=== PATIENT | male | born 1965 | race African-American/Black ===

== ENCOUNTER 2025-06-22 15:08 | Inpatient (IN) | payer SELFPAY ==
[~2025-06-22] VITALS: Ht 182.9 cm; Wt 77.1 kg
[2025-06-22 15:10] VITALS: O2SAT 99
[2025-06-22 16:02] LABS: BASOPHILS % 0.6 % (0.0-2.0); EOSINOPHILS % 1.3 % (0.0-5.0); HEMATOCRIT. 40.0 % (42.0-52.0); HEMOGLOBIN. 13.1 g/dL (14.0-18.0); LYMPHOCYTES % 19.4 % (20.0-50.0); MEAN PLATELET VOLUME 8.7 fl (7.4-10.4); MONOCYTES % 9.1 % (2.0-8.0); NEUTROPHILS % 69.6 % (40.0-76.0); PLATELET 171 x1000/uL (130-400); RED BLOOD CELL COUNT 4.68 mill/uL (4.7-6.1); RED CELL DISTRIBUTION WIDTH 14.2 % (11.6-14.6)
[2025-06-22 16:10] LABS: INR 1.1
[2025-06-22 16:15] LABS: CREATININE 1.2 mg/dL (0.6-1.3)
[2025-06-22] MEDS: IOHEXOL-350 100 ML BOTTLE ONE (16:15)
[2025-06-22 16:16] LABS: UREA NITROGEN BLOOD 13 mg/dL (9-23)
[2025-06-22 16:17] LABS: ASPARTATE AMINOTRANSFERASE 16 IU/L (<34); TROPONIN I HIGH SENSITIVITY 43 ng/L (3.0-53)
[2025-06-22 16:18] LABS: BILIRUBIN DIRECT 0.1 mg/dL (<=3.0); BILIRUBIN TOTAL 0.4 mg/dL (0.1-1.0); PROTEIN TOTAL 6.2 g/dL (6.0-8.3)
[2025-06-22] MEDS ORDERED: LEVETIRACETAM 5MG/ML SYR IV ONE (18:30)
[2025-06-22] MEDS: MAGNESIUM 2 G PREMIX 50 ML IV ONE (18:55)
[2025-06-22] MEDS ORDERED: DEXTROSE 50% WATER 50ML SYRINGE IV PRN (19:15)
[2025-06-22] MEDS ORDERED: ONDANSETRON HCL 4MG/2ML INJ IV PRN (19:15)
[2025-06-22] MEDS: LEVETIRACETAM 1500MG PREMIX 100 ML IV NR (19:24)
[2025-06-22] MEDS: LEVETIRACETAM 1500MG PREMIX 100 ML IV SCH (19:24)
[2025-06-22] MEDS: BLOOD SUGAR DIAGNOSTIC STRIP TEST SCH (20:00)
[2025-06-22] MEDS: LABETALOL 5MG/ML 4ML INJ IV ONE (20:12)
[2025-06-22] MEDS: LACTATED RINGERS 1,000 ML IV SCH (20:41)
[2025-06-22] MEDS: NICARDIPINE 40MG/200ML PREMIX 200 ML IV PRN (20:42)
[2025-06-22] MEDS: INSULIN LISPRO 100 UNITS/ML SUBCUT SCH (20:54)
[2025-06-22] MEDS ORDERED: LEVETIRACETAM 500MG in NACL 100ML PREMIX IV SCH (21:00)
[2025-06-22 21:09] LABS: *AMPHETAMINES SCREEN URINE NEGATIVE (NEGATIVE)
[2025-06-22 21:10] LABS: *BARBITURATES SCREEN URINE NEGATIVE (NEGATIVE); *BENZODIAZEPINES SCREEN URINE PRESUMPTIVE POSITIVE (NEGATIVE); *COCAINE SCREEN URINE NEGATIVE (NEGATIVE); CANNABINOID URINE SCREEN NEGATIVE (NEGATIVE); ECSTASY MDMA SCREEN URINE NEGATIVE (NEGATIVE); METHADONE URINE SCREEN NEGATIVE (NEGATIVE); OPIATES URINE SCREEN NEGATIVE (NEGATIVE); PHENCYCLIDINE URINE SCREEN NEGATIVE (NEGATIVE)
[2025-06-22 21:12] LABS: CLARITY URINE CLEAR (CLEAR); COLOR URINE YELLOW (YELLOW); GLUCOSE URINE 1+ (NEGATIVE); KETONES URINE NEGATIVE (NEGATIVE); LEUKOCYTE ESTERASE URINE NEGATIVE (NEGATIVE); NITRITE URINE NEGATIVE (NEGATIVE); OCCULT BLOOD URINE 2+ (NEGATIVE); PH URINE 7.0 (4.5-8.0); PROTEIN URINE 1+ (NEGATIVE); SPECIFIC GRAVITY URINE 1.032 (1.005-1.030); UROBILINOGEN URINE 1.0 E.U./dL (0.2-1.0)
[2025-06-22 21:27] LABS: SQUAMOUS EPITHELIAL CELL URINE FEW /lpf (RARE/1+)
[2025-06-22 21:28] LABS: BACTERIA URINE TRACE; WBC URINE 0-2 /hpf (0-2)
[2025-06-22] MEDS: LEVETIRACETAM 500MG PREMIX 100 ML IV SCH (22:40)
[2025-06-22] MEDS: SODIUM CHLORIDE 0.9% 3ML FLUSH IVF SCH (22:48)
[2025-06-22] MEDS ORDERED: IOHEXOL-350 100 ML BOTTLE ONE (23:10)
[2025-06-22 23:39] VITALS: BP 148/89; PULSE 91; RESP 17; TEMP 36.7; O2SAT 95
[2025-06-22 23:45] VITALS: BP 157/88; PULSE 94; RESP 16; O2SAT 96
[2025-06-22 23:59] VITALS: BP 148/74; PULSE 88; RESP 13; O2SAT 98
[2025-06-23] VITALS (56 sets, daily range): BP systolic 115–169; BP diastolic 53–109; PULSE 68–104; RESP 8–23; TEMP 35.8–36.974; O2SAT 94–98
[2025-06-23] MEDS ORDERED: NICARDIPINE 40MG/200ML PREMIX 200 ML IV PRN (02:00)
[2025-06-23] MEDS: NICARDIPINE 40MG/200ML PREMIX 200 ML IV PRN (04:44)
[2025-06-23 05:32] LABS: BASOPHILS % 0.5 % (0.0-2.0); EOSINOPHILS % 0.9 % (0.0-5.0); HEMATOCRIT. 44.7 % (42.0-52.0); HEMOGLOBIN. 14.7 g/dL (14.0-18.0); LYMPHOCYTES % 18.8 % (20.0-50.0); MEAN PLATELET VOLUME 8.7 fl (7.4-10.4); MONOCYTES % 7.1 % (2.0-8.0); NEUTROPHILS % 72.7 % (40.0-76.0); PLATELET 199 x1000/uL (130-400); RED BLOOD CELL COUNT 5.19 mill/uL (4.7-6.1); RED CELL DISTRIBUTION WIDTH 14.0 % (11.6-14.6)
[2025-06-23 05:44] LABS: CREATININE 1.2 mg/dL (0.6-1.3)
[2025-06-23 05:45] LABS: UREA NITROGEN BLOOD 15 mg/dL (9-23)
[2025-06-23 05:47] LABS: PHOSPHORUS 3.3 mg/dL (2.5-4.9)
[2025-06-23 07:20] LABS: HEPATITIS C AB NON REACTIVE (Neg) (Negative)
[2025-06-23] MEDS: PANTOPRAZOLE SODIUM 40 MG/VIAL IV SCH (08:22)
[2025-06-23] MEDS: MAGNESIUM 2 G PREMIX 50 ML IV ONE (08:23)
[2025-06-23] MEDS ORDERED: DEXTROSE 50% WATER 50ML SYRINGE IV PRN (17:45)
[2025-06-23] MEDS: BLOOD SUGAR DIAGNOSTIC STRIP TEST SCH (21:00)
[2025-06-23] MEDS: INSULIN LISPRO 100 UNITS/ML SUBCUT SCH (21:00)
[2025-06-23] MEDS: LOSARTAN 25 MG TABLET PO SCH (21:41)
[2025-06-23] MEDS: ATORVASTATIN CALCIUM 40MG TABLET PO SCH (21:42)
[2025-06-23] MEDS: AMLODIPINE 5MG TABLET PO SCH (21:42)
[2025-06-24] VITALS (7 sets, daily range): BP systolic 158–187; BP diastolic 82–97; PULSE 77–91; RESP 18–20; TEMP 36.3–36.6; O2SAT 97–98
[2025-06-24] MEDS ORDERED: GADOTERATE MEGLUMINE 5 MMOL/10 ML VIAL IV ONE (14:28)
[2025-06-24] MEDS: HYDRALAZINE 20MG/ML VIAL IV PRN (16:41)
[2025-06-24] MEDS: MAGNESIUM 2 G PREMIX 50 ML IV NR (19:03)
[2025-06-24] MEDS: HYDRALAZINE HCL 100MG TABLET PO SCH (19:40)
[2025-06-24] MEDS: LEVETIRACETAM 500MG TABLET PO SCH (22:07)
[2025-06-24] MEDS: PANTOPRAZOLE 40MG DR TABLET PO SCH (22:08)
[2025-06-24] MEDS: METOPROLOL TARTRATE 50MG TABLET PO SCH (22:17)
[2025-06-24] MEDS: LOSARTAN 50 MG TABLET PO SCH (22:18)
[2025-06-25] VITALS: BP 121/61; PULSE 87; RESP 20; TEMP 36.2; O2SAT 98
[2025-06-25 04:00] VITALS: BP 123/64; PULSE 86; RESP 20; TEMP 36.3; O2SAT 98
[2025-06-25 08:13] VITALS: BP 145/76; PULSE 80; RESP 18; TEMP 36.6; O2SAT 96
[2025-06-25] MEDS: METFORMIN HCL 500MG TABLET PO SCH (08:49)
[2025-06-25] MEDS: GLIMEPIRIDE 2MG TABLET PO SCH (08:49)
[2025-06-25] MEDS: MAGNESIUM 2 G PREMIX 50 ML IV NR (10:36)
[2025-06-25 12:14] VITALS: BP 148/78; PULSE 63; RESP 18; TEMP 36.6; O2SAT 98
[2025-06-25] MEDS: LORAZEPAM 2MG/ML UD SYRINGE IV PRN (15:44)
[2025-06-25 16:54] VITALS: BP 149/77; PULSE 70; RESP 18; TEMP 36.3; O2SAT 97
[2025-06-26 08:00] VITALS: BP 130/67; PULSE 77; RESP 18; TEMP 36.7; O2SAT 98
[2025-06-26 12:00] VITALS: BP 132/64; PULSE 77; RESP 18; TEMP 36.4; O2SAT 98
[2025-06-26 12:10] LABS: TRIGLYCERIDE 82.0 mg/dL (0-150)
[2025-06-26 12:11] LABS: LDL CHOLESTEROL 193.0 mg/dL (5-100)
[2025-06-26 16:00] VITALS: BP 128/61; PULSE 78; RESP 18; TEMP 36.8; O2SAT 98
[2025-06-26] MEDS: CLOPIDOGREL 75MG TABLET PO SCH (20:39)
[2025-06-26] MEDS: ASPIRIN 81MG EC TABLET PO SCH (20:40)
[2025-06-26] MEDS ORDERED: ATORVASTATIN CALCIUM 40MG TABLET PO SCH (21:00)
[2025-06-27 08:00] VITALS: BP 150/79; PULSE 77; RESP 18; TEMP 37; O2SAT 98
[2025-06-27 08:35] LABS: TRIGLYCERIDE 133.0 mg/dL (0-150)
[2025-06-27 08:36] LABS: LDL CHOLESTEROL 145.0 mg/dL (5-100)
[2025-06-27] MEDS: AMLODIPINE 10MG TABLET PO SCH (10:15)
[2025-06-27] MEDS: HYDROCHLOROTHIAZIDE 25MG TABLET PO SCH (10:15)
[2025-06-27 12:00] VITALS: BP 170/68; PULSE 80; RESP 18; TEMP 36.7; O2SAT 98
[2025-06-27] MEDS: HYDRALAZINE HCL 100MG TABLET PO SCH (14:11)
[2025-06-27] MEDS: MINOXIDIL 2.5MG TABLET PO SCH (14:11)
[2025-06-27] MEDS: LOSARTAN 100 MG TABLET PO SCH (14:11)
[2025-06-27] MEDS: POTASSIUM CHLORIDE 10MEQ TABLET SR PO SCH (14:12)
[2025-06-27 16:00] VITALS: BP 140/64; PULSE 65; RESP 18; TEMP 36.9; O2SAT 99
[2025-06-27 20:00] VITALS: BP 133/70; PULSE 63; RESP 18; TEMP 36.2; O2SAT 99
[2025-06-28] VITALS: BP 132/66; PULSE 83; RESP 19; TEMP 36.6; O2SAT 99
[2025-06-28 04:00] VITALS: BP 149/74; PULSE 81; RESP 19; TEMP 36.2; O2SAT 99
[2025-06-28 08:00] VITALS: BP 121/66; PULSE 83; RESP 18; TEMP 36.2; O2SAT 98
[2025-06-28 12:00] VITALS: BP 128/67; PULSE 85; RESP 18; TEMP 36.1; O2SAT 98
[2025-06-28 16:00] VITALS: BP 137/73; PULSE 83; RESP 18; TEMP 36.2; O2SAT 96
[2025-06-28 20:00] VITALS: BP 127/67; PULSE 92; RESP 18; TEMP 36; O2SAT 98
[2025-06-29] VITALS: BP 110/61; PULSE 96; RESP 18; TEMP 36.6; O2SAT 96
[2025-06-29 04:00] VITALS: BP 131/69; PULSE 73; RESP 18; TEMP 36.4; O2SAT 98
[2025-06-29 08:00] VITALS: BP 108/54; PULSE 74; RESP 18; TEMP 35.6; O2SAT 97
[2025-06-29 12:00] VITALS: BP 126/66; PULSE 78; RESP 17; TEMP 36.3; O2SAT 97
[2025-06-29 20:00] VITALS: BP 140/68; PULSE 91; RESP 19; TEMP 36.7; O2SAT 96
[2025-06-29] MEDS: HYDRALAZINE HCL 50MG TABLET PO SCH (20:38)
[2025-06-30] VITALS (7 sets, daily range): BP systolic 121–132; BP diastolic 62–72; PULSE 60–88; RESP 15–20; TEMP 36.4–37.1; O2SAT 95–100
[2025-06-30] MEDS: GLIMEPIRIDE 1MG TABLET PO SCH (06:48)
[2025-07-01] VITALS: BP 121/66; PULSE 63; RESP 19; TEMP 36.1; O2SAT 96
[2025-07-01 04:00] VITALS: BP 105/50; PULSE 61; RESP 18; TEMP 36.6; O2SAT 98
[2025-07-01 08:00] VITALS: BP 129/68; PULSE 68; RESP 16; TEMP 36.4; O2SAT 96
[2025-07-01] MEDS: GLIMEPIRIDE 1MG TABLET PO SCH (10:04)
[2025-07-01] MEDS ORDERED: LOSA100T33 PO (10:21)
[2025-07-01] MEDS ORDERED: METO-539 PO (10:21)
[2025-07-01] MEDS ORDERED: AMLO10TA80 PO (10:21)
[2025-07-01] MEDS ORDERED: HYDR50TA39 PO (10:21)
[2025-07-01] MEDS ORDERED: ASPI-1406 PO (10:21)
[2025-07-01] MEDS ORDERED: LIP40 PO (10:21)
[2025-07-01] MEDS ORDERED: CLOP-31 PO (10:21)
[2025-07-01] MEDS ORDERED: KEPP500 PO (10:21)
[2025-07-01] MEDS ORDERED: HYDR25TA PO (10:21)
[2025-07-01] MEDS ORDERED: POTA-189 PO (10:21)
[2025-07-01 12:00] VITALS: BP 109/70; PULSE 59; RESP 15; TEMP 36.6; O2SAT 99
[2025-07-01 15:17] VITALS: BP 109/70; PULSE 59; RESP 15; TEMP 97.8
== END 2025-07-01 16:30 | disposition home or self-care (01) | DRG 45 ==
LOC: ER 15:08 → MICUNO 18:24 → EDBEDREQ 18:27 → EDBEDREQTM 18:27 → EDBEDREQSVC 21:04 → ENRESERV 23:00 → MICUNO 06-23 06:00 → 6WST 06-23 17:46
PROVIDERS: ADMIT Internal Medicine; ATTEND Internal Medicine
PROC: 4A00X4Z Measurement of Central Nervous Electrical Activity, External Approach (ICD-10-PCS; principal; 2025-06-26)
DX: I63.89 Other cerebral infarction (principal); I46.9 Cardiac arrest, cause unspecified; I61.3 Nontraumatic intracerebral hemorrhage in brain stem; I61.4 Nontraumatic intracerebral hemorrhage in cerebellum; R56.9 Unspecified convulsions; E11.9 Type 2 diabetes mellitus without complications; F23 Brief psychotic disorder; I10 Essential (primary) hypertension; G93.89 Other specified disorders of brain; E83.42 Hypomagnesemia; R22.0 Localized swelling, mass and lump, head; E78.5 Hyperlipidemia, unspecified; R29.712 NIHSS score 12
CPT/HCPCS: 36415; 70496; 70498; 70553; 71045; 80048; 80061; 80076; 80305; 80320; 81003; 82962; 83036; 83735; 84100; 84484; 85025; 86705; 86850; 86900; 87340; 92610; 93005; 93306; 93970; 95816; 97162; 97165; 97168; 97535; 99291; A4606; A9577; J0360; J1815; J1953; J2060; J2470; J3475; J3490; Q9967; G0480